=== PATIENT | male | born 1960 | race Caucasian/White ===

== ENCOUNTER → 2025-03-09 | Day surgery (SDC) | payer MEDICAID ==
[~2025-03-09] VITALS: Ht 147.3 cm; Wt 64.4 kg
[~2025-03-09] MED LIST: AMLO10TA80 PO; BUPIVACAINE HCL/PF 0.5% (5MG/ML) 10ML ONE; CEFAZOLIN SODIUM 1000MG/VIAL ONE; EPHEDRINE SULFATE 50MG/ML VIAL ONE; FENTANYL CITRATE/PF 50MCG/ML 2ML VIAL ONE; GLYCOPYRROLATE 0.2 MG/ML 2ML VIAL ONE; LACTATED RINGERS 1,000 ML IV SCH; METOCLOPRAMIDE HCL 10MG/2ML VIAL ONE; MIDAZOLAM HCL 2 MG/2 ML VIAL ONE; NEOSTIGMINE METHYLSULFATE 1MG/ML 10 ML VIAL ONE; ONDANSETRON HCL 4MG/2ML INJ IV PRN; ONDANSETRON HCL 4MG/2ML INJ ONE; PHENYLEPHRINE HCL 10MG/ML 1ML IV ONE; PROPOFOL 200MG/20ML VIAL IV ONE; ROCURONIUM BROMIDE 10MG/ML VIAL 5ML IV ONE; VALS160T28 PO
[2025-03-09] MEDS: SODIUM CHLORIDE 0.9% 1,000 ML IV SCH (07:13)
[2025-03-09] MEDS: HYDROMORPHONE HCL/PF 1MG/ML INJ IV PRN (09:22)
[2025-03-09 10:38] VITALS: BP 146/90; PULSE 66; RESP 18
[2025-03-09] MEDS: ACETAMINOPHEN WITH CODEINE 300/30MG TABLET PO SCH (10:38)
== END | disposition home or self-care (01) ==
LOC: OR 05:44
PROVIDERS: ATTEND Surgery
DX: K40.90 Unilateral inguinal hernia, without obstruction or gangrene, not specified as recurrent (principal); I10 Essential (primary) hypertension; Z79.899 Other long term (current) drug therapy; Z98.890 Other specified postprocedural states
CPT/HCPCS: 49505; 82962; 93005; J3010; J0665; J0690; J3490 ×3; J2765; J2250; J2405; J2371; J2704; J1171; J2710; C1781